=== PATIENT | female | born 1980 | race Caucasian/White ===

== ENCOUNTER 2018-08-24 11:00 | Outpatient (CLI) | payer OTHER ==
[~2018-08-24 11:00] MED LIST: AMOX TR-K1 TAB.CHE2 PO; CELEBREX100 MG PO; METHYLPREDNISOLO1 GM MC; MOTRIN800 MG PO; [UNRECOGNIZED DRUG - OTHER] MC
== END 2018-08-24 11:07 | disposition home or self-care (01) ==
LOC: MAMO-SONO 11:00
DX: Z12.31 Encounter for screening mammogram for malignant neoplasm of breast (principal); N63.10 Unspecified lump in the right breast, unspecified quadrant; N63.20 Unspecified lump in the left breast, unspecified quadrant; N64.4 Mastodynia; N60.11 Diffuse cystic mastopathy of right breast

== ENCOUNTER 2023-10-11 23:46 | Inpatient (IN) | payer OTHER ==
[~2023-10-11] VITALS: Ht 162.6 cm; Wt 82.1 kg
[2023-10-11] MEDS ORDERED: 0.9 % SODIUM CHLORIDE 1,000 ML IV STA (23:50)
[2023-10-12] MEDS ORDERED: ERYTHROMYCIN BASE 1 GM TUBE OP ONE (00:05)
[2023-10-12] MEDS ORDERED: CHLORHEXIDINE GLUCONATE 120 ML BOTTLE TOP ONE (00:05)
[2023-10-12] MEDS ORDERED: OXYTOCIN 20 UNITS/1000ML RL PIGGYBAG IV ONE (00:05)
[2023-10-12] MEDS ORDERED: LIDOCAINE HCL 1% 10ML VIAL ONE ×2 (00:05)
[2023-10-12] MEDS ORDERED: ACETAMINOPHEN 500 MG GEL..CAP PO SCH (00:48)
[2023-10-12] MEDS ORDERED: ERYTHROMYCIN BASE 1 GM TUBE OP SCH (01:00)
[2023-10-12] MEDS ORDERED: OXYTOCIN 1,000 ML IV SCH (01:00)
[2023-10-12] MEDS ORDERED: CHLORHEXIDINE GLUCONATE 120 ML BOTTLE TOP SCH (01:00)
[2023-10-12] MEDS ORDERED: ACETAMINOPHEN 500 MG GEL..CAP PO ONE (01:30)
[2023-10-12] MEDS ORDERED: LIDOCAINE HCL 1% 10ML VIAL IJ ONE (01:30)
[2023-10-12 02:27] LABS: HEMATOCRIT 37.2 % (36.0-45.00); HEMOGLOBIN 12.5 g/dL (12.0-15.00); MEAN CELL VOLUME 93.8 fL (80.00-100.00); MEAN CORPUSCULAR HEMOGLOBIN 31.5 pg (27.00-32.0); MEAN CORPUSCULAR HGB CONC 33.5 g/dl (32.0-36.0); PLATELET COUNT 285 K/uL (150-450); RED BLOOD COUNT 3.97 M/uL (4.00-6.00); RED CELL DISTRIBUTION WIDTH 14.4 % (11.5-14.5)
[2023-10-12] MEDS ORDERED: OBSTETRIX ONE1 EAC1 PO (02:53)
[2023-10-12] MEDS ORDERED: KETOROLAC TROMETHAMINE 10 MG TABLET PO SCH (06:00)
[2023-10-12] MEDS ORDERED: PNV,CALCIUM 72/IRON/FOLIC ACID 1 TAB TABLET PO SCH (09:00)
== END 2023-10-14 13:14 | disposition home or self-care (01) | DRG 769 ==
LOC: ER 23:48 → OB/GYN 23:50 → LDR 23:50 → OB/GYN 10-12 01:42
PROVIDERS: ADMIT Obstetrics & Gynecology Maternal & Fetal Medicine; ATTEND Obstetrics & Gynecology Maternal & Fetal Medicine
PROC: 0KQM0ZZ Repair Perineum Muscle, Open Approach (ICD-10-PCS; principal; 2023-10-11)
DX: O70.1 Second degree perineal laceration during delivery (principal); Z3A.39 39 weeks gestation of pregnancy; Z37.0 Single live birth; Z20.822 Contact with and (suspected) exposure to COVID-19